=== PATIENT | female | born 1985 | race Caucasian/White ===

== ENCOUNTER 2017-07-13 17:52 | Emergency (ER) | payer OTHER ==
[2017-07-13 17:59] VITALS: RESP 18; BMI 21.4
--- NOTE | 2017-07-13 18:12 | C.PDOC ---
History Of Present Illness 31 y/o F at 13.5 weeks p/w vomiting x 14 hours. Nonbiliuos, nonbloody. 2 episodes of nonbloody diarrhea. Unable to tolerate liquids or food. No recent travel or new ingestions. Family members at home with similar complaints. Denies fever, chills, dyspnea, chest pain, abd pain, leg swelling, dysuria. Time Seen by Provider: 07/13/17 18:01 Chief Complaint (Nursing): GI Problem Past Medical History Vital Signs: Last Vital Signs Temp 97.9 F 07/13/17 17:58 Pulse 78 07/13/17 17:58 Resp 18 07/13/17 17:58 BP 109/78 07/13/17 17:58 Pulse Ox 100 07/13/17 18:24 Family History: States: No Known Family Hx Review Of Systems Except As Marked, All Systems Reviewed And Found Negative. Constitutional: Negative for: Fever Cardiovascular: Negative for: Chest Pain Physical Exam - Physical Exam Additional Physical Exam Comments: General: No acute distress. Heart S1,S2, no extra heart sounds. Lungs: CTA b/l. Abd: Soft, NT, no guarding. Skin: No rash. ED Course And Treatment O2 Sat by Pulse Oximetry: 100 Medical Decision Making Medical Decision Making: IVF. Patient states she feels well. Vitals normal. Offered Zofran, refused. Continue Diclegis. Discharge home, f/u primary care, return to ED for inability to tolerate PO fluids, fever, vomiting, abd pain, or any other problem. Disposition - Disposition Disposition: HOME/ ROUTINE Disposition Time: 19:49 Condition: STABLE Instructions: Gastroenteritis (ED) Forms: [employer] ([place]) - Clinical Impression Clinical Impression: Vomiting and diarrhea
[2017-07-13] MEDS ORDERED: Sodium Chloride 0.9% 1,000 ML IV STA (18:19)
[2017-07-13 19:57] VITALS: BP 103/68; PULSE 68; TEMP 98.2; O2SAT 98
== END 2017-07-13 20:05 | disposition home or self-care (01) ==
LOC: C.ER 17:52
DX: O21.9 Vomiting of pregnancy, unspecified (principal); R19.7 Diarrhea, unspecified; Z3A.13 13 weeks gestation of pregnancy
CPT/HCPCS: 96360; 99284; J7040

== ENCOUNTER 2018-01-08 00:52 | Inpatient (IN) | payer OTHER ==
[2018-01-08 01:26] VITALS: BMI 29.0
[2018-01-08] MEDS ORDERED: Penicillin G 5 Million Unit Vial IVPB ONE (01:47)
[2018-01-08] MEDS ORDERED: Lactated Ringer's 1,000 ML IV SCH (02:00)
[2018-01-08 02:25] LABS: BASO % 0.2 % (0.0-2.0); EOS # 0.1 K/uL (0.0-0.7); EOS % 0.6 % (0.0-4.0); HEMOGLOBIN 11.1 g/dL (11.0-16.0); LYMPH % 13.6 % (20.0-40.0); MEAN CELL VOLUME 95.7 fL (81.0-99.0); MEAN CORPUSCULAR HEMOGLOBIN 31.9 pg (27.0-31.0); MEAN CORPUSCULAR HGB CONC 33.3 g/dL (33.0-37.0); MEAN PLATELET VOLUME 8.7 fL (7.2-11.7); MONO # 1.1 K/uL (0.0-0.8); MONO % 7.6 % (0.0-10.0); NEUT # 11.5 K/uL (1.8-7.0); RBC 3.48 Mil/uL (3.80-5.20); RED CELL DISTRIBUTION WIDTH 14.8 % (11.5-14.5); WHITE BLOOD COUNT 14.8 K/uL (4.8-10.8)
[2018-01-08 02:37] LABS: ALBUMIN 3.3 g/dL (3.5-5.0); ALT/SGPT 11 U/L (9-52); AST/SGOT 23 U/L (14-36); BLOOD UREA NITROGEN 8 mg/dL (7-17); CALCIUM 8.8 mg/dl (8.6-10.4); GFR AFRICAN-AMERICAN > 60; GFR NON-AFRICAN AMERICAN > 60
[2018-01-08 02:40] LABS: SQUAMOUS EPITHIAL 92 /hpf (0-5); URINE BACTERIA MOD (<OCC); URINE BILIRUBIN NEGATIVE (NEGATIVE); URINE BLOOD 3+ (NEGATIVE); URINE CLARITY Hazy (Clear); URINE COLOR Yellow (YELLOW); URINE GLUCOSE (UA) NORMAL (Normal); URINE LEUKOCYTE ESTERASE 2+ Leu/uL (Negative); URINE PROTEIN 2+ mg/dL (NEGATIVE); URINE UROBILINOGEN NORMAL mg/dL (0.2-1.0)
[2018-01-08] MEDS ORDERED: Bupivacaine HCl/FentaNYL Cit 100 ML EPI ONE (02:45)
[2018-01-08] MEDS ORDERED: Oxytocin 30 UNIT 30 UNITS/500 ML BAG IV ONE (07:41)
[2018-01-08] MEDS ORDERED: Oxytocin 30 UNIT 30 UNITS/500 ML BAG IV PRN (07:49)
[2018-01-08] MEDS ORDERED: Lidocaine 2% Inj (20ml) ONE (10:20)
[2018-01-08] MEDS ORDERED: Oxycodone/Acetaminophen 5/325 mg Tab PO PRN (10:52)
--- NOTE | 2018-01-08 11:05 | OBDS ---
DELIVERY PERSONNEL Delivery Doctor: Michael Han MD Poultry Vaccinator: Rahel Javier RN MATERNAL INFORMATION Delivery Anesthesia: Local; Epidural Estimated Blood Loss (ml): 500 Maternal Complications: None Provider Comments: Uncomplicated vaginal delivery of live female infant over perineum, TARA position; loose nuchal cord x 1, easily reduced over head. Infant's mouth and nose bulb-suctioned. Umbilical c ord doubly clamped and cut. Infant placed on mother's abdomen. Weight 7lb 5oz; 's 9/9. Spontaneous delivery of placenta - grossly intact; 3 vessel cord Uterine exploration performed - uterus contracted and firm. Inspection of cervix, vagina and perin eum -laceration as above. Same repaired. Mother, and father bonding. Mother and infant in stable condition. EBL 500 cc LABOR SUMMARY EDC: 01/13/2018 00:00 No. Babies in Womb: 1 Attempted: No Labor Anesthesia: Epidural LABOR INFORMATION Onset of Labor: 01/07/2018 23:30 Group B Beta Strep: Positive Steroids Given: None Reason Steroids Not Administered: Not Applicable MEMBRANES Membranes Rupture Method: Spontaneous Rupture of Membranes: 01/08/2018 00:52 Length of Rupture (hrs): 9.30 Amniotic Fluid Color: Clear Amniotic Fluid Amount: Moderate Amniotic Fluid Odor: Normal STAGES OF LABOR Stage 3 hrs: 0 Stage 3 min: 11 Total Time in Labor hrs: 10 Total Time in Labor min: 51 VAGINAL DELIVERY Episiotomy: None Laceration Extension: Second Degree Laceration Type: Perineal Laceration Repair: Yes Laceration Repair Note: 2-0 and 3-0 chromic in routine fashion Hemostasis assured. Patient tolerated procedure well. Initial Vag Sponge Count: 10 Final Vag Sponge Count: 10 Sponge Count Correct: Yes Sharps Count Correct: Yes Count Comment: Correct BABY A INFORMATION Delivery Date/Time: 01/08/2018 10:10 Method of Delivery: Vaginal Born in Route : No : N/A Forceps: N/A Shoulder Dystocia : No SHOULDER DYSTOCIA BABY A Infant Delivery Date/Time: 01/08/2018 10:10 PRESENTATION/POSITION BABY A Presentation: Cephalic Cephalic Presentation: Vertex Vertex Position: Left Occipital Anterior Breech Presentation: N/A PLACENTA INFORMATION BABY A Placenta Delivery Time : 01/08/2018 10:21 Placenta Method of Delivery: Spontaneous Placenta Status: Delivered SCORES BABY A Heart Rate 1 min: >100 bpm Resp Effort 1 min: Good Cry Reflex Irritability 1 min: Cough or Sneeze or Pulls Away Muscle Tone 1 min: Active Motion Color 1 min: Body [place], Extremities Blue SCORE 1 MIN: 9 Heart Rate 5 min: >100 bpm Resp Effort 5 min: Good Cry Reflex Irritability 5 min: Cough or Sneeze or Pulls Away Muscle Tone 5 min: Active Motion Color 5 min: Body [place], Extremities Blue SCORE 5 MIN: 9 INFORMATION BABY A Gestational Age at Delivery: 39.2 Gestational Status: Term Outcome : Liveborn Infant Condition : Stable Infant Sex: Female IDENTIFICATION/MEDS BABY A ID Band Number: [id number] Sensor Applied: Yes Sensor Number: [id number] Sensor Location : Cord Clamp WEIGHT/LENGTH BABY A Infant Birthweight (gms): 3320 Weight (lb): 7 Weight (oz): 5 Length Inches: 19.50 Infant Length cms: 49.5 CORD INFORMATION BABY A No. Cord Vessels: 3 Nuchal Cord : Around Neck x1, Loose Cord Blood Taken: Yes Suction: Mouth; Nose ASSESSMENT BABY A Infant Complications: None Physical Findings at Delivery: Within Normal Limits Respirations: Appears Normal Handy Worker/ALS Called : No Transferred To: Remains with Mother
[2018-01-08] MEDS ORDERED: Benzocaine/Menthol 20%-0.5% Topical Spray (60 ml) TOP SCH (12:00)
[2018-01-08] MEDS ORDERED: Benzocaine/Menthol 20%-0.5% Topical Spray (60 ml) TOP PRN (18:26)
[2018-01-09 07:51] LABS: BASO # 0.1 K/uL (0.0-0.2); BASO % 0.3 % (0.0-2.0); EOS # 0.1 K/uL (0.0-0.7); EOS % 0.3 % (0.0-4.0); HEMOGLOBIN 9.4 g/dL (11.0-16.0); LYMPH % 10.2 % (20.0-40.0); MEAN CELL VOLUME 96.7 fL (81.0-99.0); MEAN CORPUSCULAR HEMOGLOBIN 32.3 pg (27.0-31.0); MEAN CORPUSCULAR HGB CONC 33.4 g/dL (33.0-37.0); MEAN PLATELET VOLUME 8.1 fL (7.2-11.7); MONO # 1.1 K/uL (0.0-0.8); MONO % 5.4 % (0.0-10.0); NEUT # 16.5 K/uL (1.8-7.0); NEUT % 83.8 % (50.0-75.0); RBC 2.91 Mil/uL (3.80-5.20); RED CELL DISTRIBUTION WIDTH 14.8 % (11.5-14.5); WHITE BLOOD COUNT 19.7 K/uL (4.8-10.8)
--- NOTE | 2018-01-09 08:11 | OBPPN ---
Datetime: 01/09/2018 08:07 PP Pain Prov: Within normal limits PP Nausea Prov: Denies PP Flatus Prov: Yes PP BM Prov: No PP Breasts Prov: Normal PP Heart Prov: Normal PP Lungs Prov: Normal PP Abdomen/Uterus Prov: Normal PP Lochia Prov: Normal PP Vulva/Perineum Prov: Normal PP CVA Tenderness Prov: Normal PP Extremities Prov: Normal PP C/S Incision Prov: Not Applicable PP Progress Prov: Normal PP Impression Prov: Normal progression PP Plan Prov: Continue present management PP Progress Note Prov: Pt seen and examined and erprot pain well controlled. pt ambuaitn out of bed, voising, psasing flatus, breast feeding, deis any fever, chills, nasu, vomitng, cp, sob VSS PE GEN NAD AA x 3 RESP: CTAB?l CVS: RRR, +S1/S2 ABD: osft, Nt/ND, no ugaridng no reboudn tendnerre nor igdty FUNDUS: Fimr, at lelv eo fumbiucs VE: Minimal lochia, non foul smelling EXT: No calf tendenrss b/l A/P s/p PPD #1 doign well -f/u am cbc -pain manamgnet -regular diet -encourage ambuatin, breat feeding IP PP Procedures: None
--- NOTE | 2018-01-09 08:32 | OBDS ---
DELIVERY PERSONNEL Delivery Doctor: Michael Han MD It Application Administrator: Rahel Javier RN MATERNAL INFORMATION Delivery Anesthesia: Local; Epidural Estimated Blood Loss (ml): 500 Maternal Complications: None Provider Comments: Uncomplicated vaginal delivery of live female infant over perineum, TARA position; loose nuchal cord x 1, easily reduced over head. Infant's mouth and nose bulb-suctioned. Umbilical c ord doubly clamped and cut. Infant placed on mother's abdomen. Weight 7lb 5oz; 's 9/9. Spontaneous delivery of placenta - grossly intact; 3 vessel cord Uterine exploration performed - uterus contracted and firm. Inspection of cervix, vagina and perin eum -laceration as above. Same repaired. Mother, and father bonding. Mother and infant in stable condition. EBL 500 cc LABOR SUMMARY EDC: 01/13/2018 00:00 No. Babies in Womb: 1 Attempted: No Labor Anesthesia: Epidural LABOR INFORMATION Onset of Labor: 01/07/2018 23:30 Complete Dilatation: 01/08/2018 09:00 Oxytocin: Augmentation Group B Beta Strep: Positive Steroids Given: None Reason Steroids Not Administered: Not Applicable MEMBRANES Membranes Rupture Method: Spontaneous Rupture of Membranes: 01/08/2018 00:52 Length of Rupture (hrs): 9.30 Amniotic Fluid Color: Clear Amniotic Fluid Amount: Moderate Amniotic Fluid Odor: Normal STAGES OF LABOR Stage 1 hrs: 9 Stage 1 min: 30 Stage 2 hrs: 1 Stage 2 min: 10 Stage 3 hrs: 0 Stage 3 min: 11 Total Time in Labor hrs: 10 Total Time in Labor min: 51 VAGINAL DELIVERY Episiotomy: None Laceration Extension: Second Degree Laceration Type: Perineal Laceration Repair: Yes Laceration Repair Note: 2-0 and 3-0 chromic in routine fashion Hemostasis assured. Patient tolerated procedure well. Initial Vag Sponge Count: 10 Final Vag Sponge Count: 10 Sponge Count Correct: Yes Sharps Count Correct: Yes Count Comment: Correct BABY A INFORMATION Infant Delivery Date/Time: 01/08/2018 10:10 Method of Delivery: Vaginal Born in Route : No : N/A Forceps: N/A Shoulder Dystocia : No SHOULDER DYSTOCIA BABY A Delivery Date/Time: 01/08/2018 10:10 PRESENTATION/POSITION BABY A Presentation: Cephalic Cephalic Presentation: Vertex Vertex Position: Left Occipital Anterior Breech Presentation: N/A PLACENTA INFORMATION BABY A Placenta Delivery Time : 01/08/2018 10:21 Placenta Method of Delivery: Spontaneous Placenta Status: Delivered SCORES BABY A Heart Rate 1 min: >100 bpm Resp Effort 1 min: Good Cry Reflex Irritability 1 min: Cough or Sneeze or Pulls Away Muscle Tone 1 min: Active Motion Color 1 min: Body [place], Extremities Blue SCORE 1 MIN: 9 Heart Rate 5 min: >100 bpm Resp Effort 5 min: Good Cry Reflex Irritability 5 min: Cough or Sneeze or Pulls Away Muscle Tone 5 min: Active Motion Color 5 min: Body [place], Extremities Blue SCORE 5 MIN: 9 INFORMATION BABY A Gestational Age at Delivery: 39.2 Gestational Status: Term Infant Outcome : Liveborn Infant Condition : Stable Infant Sex: Female IDENTIFICATION/MEDS BABY A ID Band Number: [id number] Sensor Applied: Yes Sensor Number: [id number] Sensor Location : Cord Clamp WEIGHT/LENGTH BABY A Infant Birthweight (gms): 3320 Weight (lb): 7 Weight (oz): 5 Length Inches: 19.50 Length cms: 49.5 CORD INFORMATION BABY A No. Cord Vessels: 3 Nuchal Cord : Around Neck x1, Loose Cord Blood Taken: Yes Infant Suction: Mouth; Nose ASSESSMENT BABY A Complications: None Physical Findings at Delivery: Within Normal Limits Respirations: Appears Normal Drafter Commercial/ALS Called : No Transferred To: Remains with Mother
[2018-01-09] MEDS ORDERED: Benzocaine/Menthol 20%-0.5% Topical Spray (60 ml) EXT ONE (08:47)
[2018-01-09] MEDS: Multiple Vitamins Tab PO SCH (09:33)
--- NOTE | 2018-01-10 06:56 | OBPPN ---
Datetime: 01/10/2018 06:55 PP Pain Prov: Within normal limits PP Nausea Prov: Denies PP Flatus Prov: Yes PP BM Prov: No PP Breasts Prov: Normal PP Heart Prov: Normal PP Lungs Prov: Normal PP Abdomen/Uterus Prov: Normal PP Lochia Prov: Normal PP Vulva/Perineum Prov: Normal PP CVA Tenderness Prov: Normal PP Extremities Prov: Normal PP Impression Prov: Normal progression PP Plan Prov: Continue present management PP Progress Note Prov: Pt seen and examined and erprot pain well controlled. pt ambuaitn out of bed, voising, psasing flatus, breast feeding, deis any fever, chills, nasu, vomitng, cp, sob VSS PE GEN NAD AA x 3 RESP: CTAB?l CVS: RRR, +S1/S2 ABD: osft, Nt/ND, no ugaridng no reboudn tendnerre nor igdty FUNDUS: Fimr, at lelv eo fumbiucs VE: Minimal lochia, non foul smelling EXT: No calf tendenrss b/l A/P s/p PPD #2 doign well -f/u am cbc -encourage ambuatin, breat feeding -antiicipate dc home -preciuaton givne -rto 6 wereks Vital Signs Provider PP: Reviewed; Within Normal Limits
--- NOTE | 2018-01-10 06:58 | OBDCSUM ---
Datetime: 01/10/2018 06:55 Discharged to, Provider: Home Follow up at, Provider: Dr Randle Disch Instr Activity: Normal activity Disch Instr Diet: Regular Discharge Instructions, Provider: Routine instructions given Discharge Diagnosis, Provider: Term Delivered Discharge Time: 01/10/2018 09:00 Follow up in weeks, Provider: 6 weeks Disch Referrals: None Contraception discussed, Prov: Yes Disch Activity Restrictions: No sexual activity; Nothing in vagina - [place], tampons, douche Discharge Comment, Provider: precautin givne if heabvy bleeidng, fever, chills, pain go to er and call md Contraception after Delivery: Not Planning to Use
[2018-01-10 08:01] LABS: BASO % 0.3 % (0.0-2.0); EOS # 0.1 K/uL (0.0-0.7); EOS % 0.6 % (0.0-4.0); HEMOGLOBIN 9.8 g/dL (11.0-16.0); LYMPH # 1.4 K/uL (1.0-4.3); LYMPH % 11.1 % (20.0-40.0); MEAN CELL VOLUME 97.1 fL (81.0-99.0); MEAN CORPUSCULAR HEMOGLOBIN 32.9 pg (27.0-31.0); MEAN CORPUSCULAR HGB CONC 33.9 g/dL (33.0-37.0); MEAN PLATELET VOLUME 8.2 fL (7.2-11.7); MONO # 0.8 K/uL (0.0-0.8); MONO % 6.1 % (0.0-10.0); NEUT # 10.6 K/uL (1.8-7.0); NEUT % 81.9 % (50.0-75.0); RBC 2.98 Mil/uL (3.80-5.20); RED CELL DISTRIBUTION WIDTH 15.1 % (11.5-14.5); WHITE BLOOD COUNT 12.9 K/uL (4.8-10.8)
[2018-01-10] MEDS: Multiple Vitamins Tab PO SCH (09:48)
[2018-01-10 18:16] VITALS: BP 100/68; PULSE 85; RESP 18; TEMP 98.6; O2SAT 98
== END 2018-01-10 13:45 | disposition home or self-care (01) | DRG 775 ==
LOC: C.EROB 00:52 → C.4D 01:41 → C.4M 12:26
PROVIDERS: ADMIT Obstetrics & Gynecology; ATTEND Obstetrics & Gynecology
PROC: 10E0XZZ Delivery of Products of Conception, External Approach (ICD-10-PCS; principal; 2018-01-08)
PROC: 0KQM0ZZ Repair Perineum Muscle, Open Approach (ICD-10-PCS; 2018-01-08)
DX: O69.81X0 Labor and delivery complicated by cord around neck, without compression, not applicable or unspecified (principal); O99.824 Streptococcus B carrier state complicating childbirth; O70.1 Second degree perineal laceration during delivery; Z3A.39 39 weeks gestation of pregnancy; Z37.0 Single live birth